=== PATIENT | female | born 1965 | race Caucasian/White ===

== ENCOUNTER → 2017-10-10 | Outpatient (CLI) | payer BC ==
[~2017-10-10] MED LIST: ALBU1AER9 INH; BUTA1CAP20 PO; DICL1TAB5 PO; IBUP-1050 PO; SNG10 PO; TOPI50TA16 PO; TRAM-10 PO
== END | disposition home or self-care (01) ==
LOC: C.RDSM 14:23
PROVIDERS: ATTEND Physical Medicine & Rehabilitation Sports Medicine
DX: M53.3 Sacrococcygeal disorders, not elsewhere classified (principal)

== ENCOUNTER → 2017-10-19 | Outpatient (CLI) | payer BC | END | disposition home or self-care (01) | LOC: C.RDSM 10:35 | PROVIDERS: ATTEND Physical Medicine & Rehabilitation Sports Medicine | DX: M25.512 Pain in left shoulder (principal) ==

== ENCOUNTER → 2017-10-26 | Outpatient (CLI) | payer BC ==
--- NOTE | 2017-10-26 10:58 | DIAGNOSTIC IMAGING REPORT ---
MRI LEFT SHOULDER NO CONTRAST CLINICAL HISTORY: Persistent left shoulder pain COMPARISON STUDY: Conventional radiographic study October 19, 2017 FINDINGS: Imaging was performed in the sagittal, coronal, and axial planes. The bicipital tendon appears intact. There are no areas of marrow replacement to indicate occult fracture or neoplasm. There is no evidence of rotator cuff tear. There is no evidence of significant tendinopathy. An equivocal linear focus of increased T2 signal within the superior margin of the supraspinatus musculotendinous junction on coronal images is not confirmed on sagittal images and may be artifactual There is irregularity anterior glenoid labrum likely degenerative basis. The study is degraded due to patient motion artifact. IMPRESSION: 1. Irregularity anterior glenoid labrum, likely degenerative basis 2. No evidence of bicipital tendon tear 3. No evidence of rotator cuff tear Electronically signed by: Harrison Zuleta M.D. 10/26/2017 10:56 AM Dictated Date/Time: 10/26/2017 10:51 AM
== END | disposition home or self-care (01) ==
LOC: C.MRI 09:41
PROVIDERS: ATTEND Physical Medicine & Rehabilitation Sports Medicine
DX: M25.512 Pain in left shoulder (principal)

== ENCOUNTER → 2018-03-25 | Outpatient (CLI) | payer BC | END | disposition home or self-care (01) | LOC: C.RDSM 14:43 | PROVIDERS: ATTEND Physical Medicine & Rehabilitation Sports Medicine | DX: M25.511 Pain in right shoulder (principal) ==